=== PATIENT | female | born 2000 | race Hispanic/Latino ===

== ENCOUNTER 2022-06-07 20:41 | Emergency (ER) | payer OTHER ==
[~2022-06-07] VITALS: Ht 157.5 cm; Wt 114.3 kg
[2022-06-07 21:48] VITALS: BP 143/73
== END 2022-06-08 02:19 | disposition left against medical advice (07) ==
LOC: EDH 20:41
DX: Z53.21 Procedure and treatment not carried out due to patient leaving prior to being seen by health care provider (principal)